=== PATIENT | male | born 1945 | race Caucasian/White ===

== ENCOUNTER 2017-01-30 21:52 | Emergency (ER) | payer MEDICARE, BC ==
[2017-01-30 23:02] LABS: ABSOLUTE EOSINOPHILS # (AUTO) 0.2 10^3/uL (0.0-0.6); ABSOLUTE LYMPHOCYTES (AUTO) 1.1 10^3/uL (0.5-4.7); ABSOLUTE MONOCYTES (AUTO) 0.5 10^3/uL (0.1-1.4); ABSOLUTE NEUT (AUTO) 3.8 10^3/uL (1.7-8.2); BASOPHILS % (AUTO) 0.8 % (0-2); EOSINOPHILS % (AUTO) 2.9 % (0-6); LYMPHOCYTES % (AUTO) 19.2 % (13-45); MEAN CORPUSCULAR HEMOGLOBIN 34.9 pg (27.0-33.4); MEAN CORPUSCULAR HGB CONC 34.1 g/dL (32.0-36.0); MEAN CORPUSCULAR VOLUME 102 fl (80-97); MONOCYTES % (AUTO) 9.3 % (3-13); RED CELL DISTRIBUTION WIDTH 12.4 % (11.5-14.0); SEGMENTED NEUTROPHILS % (AUTO) 67.8 % (42-78); WHITE BLOOD COUNT 5.7 10^3/uL (4.0-10.5)
--- NOTE | 2017-01-30 23:05 | RADIOLOGY REPORT (SQ) ---
EXAM DESCRIPTION: CT HEAD WITHOUT COMPLETED DATE/TIME: 01/30/2017 10:58 pm REASON FOR STUDY: RIGHT SIDED NUMBNESS COMPARISON: None. TECHNIQUE: Axial images acquired through the brain without intravenous contrast. Images reviewed wi th bone, brain and subdural windows. Images stored on PACS. All CT scanners at this facility use dose modulation, iterative reconstruction, and/or weight based d osing when appropriate to reduce radiation dose to as low as reasonably achievable (ALARA). [facility]: Dose Right [facility]: CareDose [facility]: Dose Right [facility]: Teradose 4D [facility]: [employer] RADIATION DOSE: mGy. LIMITATIONS: None. FINDINGS: VENTRICLES: Prominent. CEREBRUM: No masses. No hemorrhage. No midline shift. Areas of low density in the white matter mos t likely due to chronic micro-vascular ischemic change. No evidence for acute infarction. CEREBELLUM: No masses. No hemorrhage. No alteration of density. No evidence for acute infarction. EXTRAAXIAL SPACES: Mild age-related involutional change. No fluid collections. No masses. ORBITS AND GLOBE: No intra- or extraconal masses. Normal contour of globe without masses. CALVARIUM: No fracture. PARANASAL SINUSES: No fluid or mucosal thickening. SOFT TISSUES: No mass or hematoma. OTHER: No other significant finding. IMPRESSION: MILD CHRONIC CHANGES OF ATROPHY AND MICROVASCULAR ISCHEMIA. NO ACUTE PROCESS. TECHNICAL DOCUMENTATION: JOB ID: [id number] Quality ID # [id number]: Final reports with documentation of one or more dose reduction techniques (e.g., Au tomated exposure control, adjustment of the mA and/or kV according to patient size, use of iterative reconstruction technique) 2010 [employer]- All Rights Reserved
--- NOTE | 2017-01-30 23:08 | RADIOLOGY REPORT (SQ) ---
EXAM DESCRIPTION: CHEST SINGLE VIEW COMPLETED DATE/TIME: 01/30/2017 11:01 pm REASON FOR STUDY: cp COMPARISON: None. EXAM PARAMETERS: NUMBER OF VIEWS: One view. TECHNIQUE: Single frontal radiographic view of the chest acquired. RADIATION DOSE: NA LIMITATIONS: None. FINDINGS: LUNGS AND PLEURA: There is bibasilar atelectasis. MEDIASTINUM AND HILAR STRUCTURES: No masses. Contour normal. HEART AND VASCULAR STRUCTURES: Heart normal in size. Normal vasculature. BONES: No acute findings. HARDWARE: None in the chest. OTHER: No other significant finding. IMPRESSION: There is bibasilar atelectasis. TECHNICAL DOCUMENTATION: JOB ID: [id number]
[2017-01-30 23:24] LABS: ANION GAP 9 (5-19); BLOOD UREA NITROGEN 18 mg/dL (7-20); CALCIUM 9.9 mg/dL (8.4-10.2); CARBON DIOXIDE 26 mmol/L (22-30); CHLORIDE 105 mmol/L (98-107); CREATININE RESULT 0.99 mg/dL (0.52-1.25); GLUCOSE 95 mg/dL (75-110); POTASSIUM 4.1 mmol/L (3.6-5.0); SODIUM 139.5 mmol/L (137-145)
[2017-01-30 23:41] LABS: APPEARANCE,URINE CLEAR; BILIRUBIN,URINE NEGATIVE (NEGATIVE); GLUCOSE, URINE NEGATIVE (NEGATIVE); KETONES,URINE NEGATIVE (NEGATIVE); LEUKOCYTE ESTERASE,URINE NEGATIVE (NEGATIVE); NITRITE,URINE NEGATIVE (NEGATIVE); PROTEIN,URINE NEGATIVE (NEGATIVE); URINE SPECIFIC GRAVITY 1.004; UROBILINOGEN,URINE NEGATIVE mg/dL (<2.0)
--- NOTE | 2017-01-30 23:45 | ER Document Report ---
ED General - General Chief Complaint: Numbness of Arm Stated Complaint: RIGHT SIDE NUMBNESS Time Seen by Provider: 01/30/17 22:27 Notes: Patient is a 71-year-old male without past medical history who presents with 5- 6 hours of right hand numbness and weakness. Patient is visiting from [place] and states that shortly after arriving here in [place] he did notice that it is increasingly difficult for him to pick things up with his right hand. He also notes a sensation of paresthesias to the area but states he is still able to feel his hand. Was moving a heavy dehumidifier yesterday as well as unpacking heavy bags today. Nothing seems to improve or worsen his symptoms. He denies any history of similar symptoms in the past. He has been unable to see his primary doctor as he is visiting from out of town. He denies any injury that he is aware of. No significant shoulder or elbow pain. He denies any symptoms in any other portion of his body including his face, chest or legs. TRAVEL OUTSIDE OF THE [place] IN LAST 30 DAYS: No Past Medical History - General Information source: Patient - Social History Smoking Status: Never Smoker Frequency of alcohol use: Social Drug Abuse: None Lives with: Spouse/Significant other Family History: Reviewed & Not Pertinent Patient has suicidal ideation: No Patient has homicidal ideation: No Renal/ Medical History: Denies: Hx Peritoneal Dialysis - Immunizations Hx Diphtheria, Pertussis, Tetanus Vaccination: Yes Review of Systems - Review of Systems Notes: Constitutional: Negative for fever. HENT: Negative for sore throat. Eyes: Negative for visual changes. Cardiovascular: Negative for chest pain. Respiratory: Negative for shortness of breath. Gastrointestinal: Negative for abdominal pain, vomiting or diarrhea. Genitourinary: Negative for dysuria. Musculoskeletal: Negative for back pain. Skin: Negative for rash. Neurological: Negative for headaches, positive for right hand numbness and weakness 10 point ROS negative except as marked above and in HPI. Physical Exam - Vital signs Vitals: Temp Pulse Resp BP Pulse Ox 98.8 F 73 18 154/77 H 95 01/30/17 22:05 01/30/17 22:05 01/30/17 22:05 01/30/17 22:05 01/30/17 22:05 Interpretation: Hypertensive Notes: PHYSICAL EXAMINATION: GENERAL: Well-appearing, well-nourished and in no acute distress. HEAD: Atraumatic, normocephalic. EYES: Pupils equal round and reactive to light, extraocular movements intact, sclera anicteric, conjunctiva are normal. ENT: nares patent, oropharynx clear without exudates. Moist mucous membranes. NECK: Normal range of motion, supple without lymphadenopathy LUNGS: Breath sounds clear to auscultation bilaterally and equal. No wheezes rales or rhonchi. HEART: Regular rate and rhythm without murmurs ABDOMEN: Soft, nontender, normoactive bowel sounds. No guarding, no rebound. No masses appreciated. EXTREMITIES: Normal range of motion, no pitting or edema. No cyanosis. NEUROLOGICAL: Face symmetric. Tongue protrudes midline. Extraocular motions intact. Pupils are 2 mm and equally reactive. Normal speech, normal gait. 5 out of 5 strength in the biceps and triceps bilaterally. Assistant Administrator strength is 4- out of 5 on the right, 5 out of 5 on the left. There is notable weakness to the interosseous testing on the right, normal on left. Patient is able to complete an okay sign, thumbs up but does have difficulty spreading his fingers on the right. Sensation is intact in the RMU distribution bilaterally although is dulled over the ulnar distribution on the right. 5 out of 5 both distally and proximally the bilateral lower extremities. Finger to nose testing normal. Pronator drift normal. PSYCH: Normal mood, normal affect. SKIN: Warm, Dry, normal turgor, no rashes or lesions noted. Course - Re-evaluation Re-evalutation: 01/30/17 23:41 Patient presents with right hand and forearm paresthesias as well as weakness of the right hand that is been present for approximately 5 hours. Examination shows completely normal biceps and triceps strength bilaterally. His sensation is intact in the RMU distribution but is notably diminished in the ulnar nerve distribution both along the forearm and in the right hand. His interosseous muscles are weak on the right versus the left. Assistant Administrator strength is also moderately diminished on the right. Patient has no focal pain on palpation of the medial epicondyle. Full shoulder range of motion without difficulty. He has absolutely no facial, trunk or lower extremity symptoms. His clinical history is not consistent with an acute stroke given the localized nature of his symptoms and the fact that they correlate well with an ulnar nerve distribution on examination. CT of the head was obtained and does not demonstrate any acute process. Troponin normal as is an EKG and I do not suspect an acute cardiac etiology as patient denies any additional symptoms that would suggest this including chest pain or shortness of breath. Even if this was a stroke, patient would not be a TPA candidate given duration of symptoms. I discussed this at length with the patient at the bedside and have encouraged him to follow-up with his primary doctor as well as a orthopedic doctor for physical therapy as well as further evaluation. At this time will discharge with return precautions and follow-up recommendations. Verbal discharge instructions given a the bedside and opportunity for questions given. Medication warnings reviewed. Patient is in agreement with this plan and has verbalized understanding of return precautions and the need for primary care follow-up in the next 24-72 hours. - Vital Signs Vital signs: Temp Pulse Resp BP Pulse Ox 97.9 F 80 18 126/74 H 99 01/30/17 23:45 01/30/17 23:45 01/30/17 23:45 01/30/17 23:45 01/30/17 23:45 - Laboratory Result Diagrams: 01/30/17 22:45 01/30/17 22:45 Laboratory results interpreted by me: 01/30/17 01/30/17 22:45 23:25 MCV 102 H MCH 34.9 H Urine Blood SMALL H - Diagnostic Test Radiology reviewed: Image reviewed, Reports reviewed Radiology results interpreted by me: 01/31/17 03:45 CT head: No acute intracranial bleed - EKG Interpretation by Me Additional EKG results interpreted by me: 01/31/17 03:45 Sinus rhythm. Rate 72. No ST elevations or depressions. Right bundle branch block is present. QTC is 469. Discharge - Discharge Clinical Impression: Impingement of right ulnar nerve, Right hand weakness Condition: Good Disposition: HOME, SELF-CARE Additional Instructions: Your symptoms are most suggestive of an ulnar nerve impingement. Take ibuprofen 600 mg every 6 hours and apply ice to your right elbow. Continue to range her hand as much as you are able. Please follow-up with your primary care doctor at your earliest ability. Your symptoms should hopefully improve in the next 2-3 weeks. Return for any worsening of your symptoms, facial or leg symptoms, chest pain, vomiting, shortness of breath, or any other symptoms that are worrisome to you.
[2017-01-31 00:01] VITALS: BP 126/74
--- NOTE | 2017-01-31 12:55 | EKG REPORT ---
SEVERITY:- ABNORMAL ECG - SINUS RHYTHM RIGHT BUNDLE BRANCH BLOCK : Confirmed by: Italia Green 31-Jan-2017 12:54:38
== END 2017-01-31 00:02 | disposition home or self-care (01) ==
LOC: ER 21:52
DX: G56.21 Lesion of ulnar nerve, right upper limb (principal); M62.81 Muscle weakness (generalized); R20.2 Paresthesia of skin; I45.10 Unspecified right bundle-branch block
CPT/HCPCS: 36415; 70450; 71010; 80048; 81001; 84484; 85025; 93005; 93010; 99284